=== PATIENT | female | born 1990 | race African-American/Black ===

== ENCOUNTER 2017-02-02 04:15 | Inpatient (IN) | payer OTHER ==
[~2017-02-02] VITALS: Ht 170.2 cm; Wt 75.9 kg
[2017-02-02] VITALS (16 sets, daily range): BP systolic 101–134; BP diastolic 56–84
[~2017-02-02 04:15] MED LIST: ALLEGRA ALLERG180 MG PO; NORCO 5/3251 TABLET PO; PRENATAL VITAM1 EAC3 PO; ZITHROMAX Z-PA250 MG PO; ZOFRAN ODT4 MG PO
[2017-02-02 05:04] LABS: EOSINOPHIL (%) 2.3 % (0-5); EOSINOPHIL COUNT 0.2 K/uL (0-0.3); HEMATOCRIT 35.8 % (36.0-46.0); IMMATURE GRANULOCYTE (%) 0.5 % (0.0-0.7); IMMATURE GRANULOCYTE COUNT 0.1 K/uL; INSTRUMENT ABS NEUTROPHIL CT 7.7 K/uL; LYMPHOCYTE COUNT 1.4 K/uL (1.0-2.8); MCH 29.4 PG (29.0-34.0); MCHC 32.4 G/DL (30.0-36.0); MCV 90.9 FL (83-99); MEAN PLAT.VOLUME 12.4 uM^3 (9.5-12.4); MONOCYTE (%) 7.5 % (3-12); MONOCYTE COUNT 0.8 K/uL (0-0.8); NEUTROPHIL (%) 75.4 % (45-76); NEUTROPHIL COUNT 7.7 K/uL (1.8-6.4); PLATELET COUNT 128 K/uL (156-360); RBC DIS.WIDTH-CV 15.9 % (11.8-14.6); RBC DIS.WIDTH-SD 53.3 % (39-53); RED BLOOD COUNT 3.94 M/uL (3.80-5.20); WHITE BLOOD COUNT 10.2 K/uL (4.1-10.2)
[2017-02-02 05:51] LABS: AMPHETAMINES QUANT VALUE 0 NG/ML; BARBITUATES QUANT VALUE 0 NG/ML; BENZODIAZEPINES QUANT VALUE 0 NG/ML; BENZODIAZEPINES, URINE SCREEN Negative (200 ng/mL); MARIJUANA QUANT VALUE 0 NG/ML; OPIATES QUANTITATIVE VALUE 0 NG/ML; PHENCYCLIDINE QUANT VALUE 0 NG/ML
[2017-02-02 07:14] LABS: DRSB INTERNAL CONTROL PASS; PROBE CHECK PASS; SPECIMEN PROCESSING CONTROL PASS
[2017-02-03 07:08] VITALS: BP 131/76
[2017-02-03] MEDS ORDERED: MOTRIN800 MG PO (10:14)
[2017-02-03 12:28] LABS: EOSINOPHIL (%) 0.2 % (0-5); HEMATOCRIT 33.7 % (36.0-46.0); IMMATURE GRANULOCYTE (%) 0.5 % (0.0-0.7); IMMATURE GRANULOCYTE COUNT 0.1 K/uL; INSTRUMENT ABS NEUTROPHIL CT 14.7 K/uL; LYMPHOCYTE COUNT 1.7 K/uL (1.0-2.8); MCV 90.3 FL (83-99); MEAN PLAT.VOLUME 12.8 uM^3 (9.5-12.4); MONOCYTE (%) 6.9 % (3-12); MONOCYTE COUNT 1.2 K/uL (0-0.8); NEUTROPHIL (%) 82.8 % (45-76); NEUTROPHIL COUNT 14.7 K/uL (1.8-6.4); PLATELET COUNT 140 K/uL (156-360); RBC DIS.WIDTH-SD 53.8 % (39-53); RED BLOOD COUNT 3.73 M/uL (3.80-5.20)
[2017-02-03 12:32] LABS: WHITE BLOOD COUNT 17.8 K/uL (4.1-10.2)
[2017-02-03 15:00] VITALS: BP 107/80
[2017-02-03 23:58] VITALS: BP 124/69
[2017-02-04 07:29] VITALS: BP 111/71
== END 2017-02-04 15:07 | disposition home or self-care (01) | DRG 775 ==
LOC: LDRP-OP 04:15 → 2WEST 04:16
PROVIDERS: Midwife
PROC: 10E0XZZ Delivery of Products of Conception, External Approach (ICD-10-PCS; principal; 2017-02-02)
PROC: 3E0S3BZ Introduction of Anesthetic Agent into Epidural Space, Percutaneous Approach (ICD-10-PCS; 2017-02-02)
DX: O42.013 Preterm premature rupture of membranes, onset of labor within 24 hours of rupture, third trimester (principal); O99.324 Drug use complicating childbirth; Z37.0 Single live birth; Z3A.34 34 weeks gestation of pregnancy; J45.909 Unspecified asthma, uncomplicated; O99.013 Anemia complicating pregnancy, third trimester; O99.344 Other mental disorders complicating childbirth; F41.9 Anxiety disorder, unspecified; D64.9 Anemia, unspecified; O69.81X1 Labor and delivery complicated by cord around neck, without compression, fetus 1; F12.90 Cannabis use, unspecified, uncomplicated; Z87.891 Personal history of nicotine dependence
CPT/HCPCS: 80306 90; 85025; 87081; 87653; C1755; J0595; J0702; J2540; J2795; J3010; J7120